=== PATIENT | female | born 1980 | race Hispanic/Latino ===

== ENCOUNTER 2020-06-24 08:55 | Outpatient (CLI) | payer SELFPAY ==
[2020-06-24 09:55] LABS: ALT (SGPT) 16 U/L (8-55); AST (SGOT) 18 U/L (5-34); Albumin 4.6 g/dL (3.5-5.0); Alkaline Phosphatase 106 U/L (40-110); Anion Gap 15 mmol/L (10-20); BUN (Urea Nitrogen) 10 mg/dL (7.0-18.7); Bilirubin, Total 0.7 mg/dL (0.2-1.2); Calc. Creatinine Clearance 0 mL/min (70-130); Calcium 9.9 mg/dL (7.8-10.44); Carbon Dioxide 26 mmol/L (22-29); Cardiac Risk 3.9 (Less than 4.5); Chloride 104 mmol/L (98-107); Cholesterol 236 mg/dl (< 200 Desired); Globulin 2.6 g/dL (2.4-3.5); Glucose 125 mg/dL (70-105); HDL Cholesterol 60 mg/dL (>60 Neg Risk); LDL Cholesterol, Calculated 150 mg/dL; Potassium 4.4 mmol/L (3.5-5.1); Protein, Total 7.2 g/dL (6.0-8.3); Sodium 141 mmol/L (136-145); Triglycerides 130 mg/dL (Less than 150)
[2020-06-24 14:11] LABS: Hemoglobin A1c 6.3 % (4.0-6.0)
== END 2020-06-24 08:56 | disposition home or self-care (01) ==
LOC: MADLAB 08:55
PROVIDERS: ATTEND Family Medicine
DX: E78.5 Hyperlipidemia, unspecified (principal); E11.9 Type 2 diabetes mellitus without complications
CPT/HCPCS: 36415; 80053; 80061; 83036